=== PATIENT | male | born 1960 | race Hispanic/Latino ===

== ENCOUNTER → 2018-11-01 | Outpatient (CLI) | payer BC | END | disposition home or self-care (01) | LOC: RAH 10:05 | PROVIDERS: ATTEND Family Medicine | DX: M17.11 Unilateral primary osteoarthritis, right knee (principal); M25.762 Osteophyte, left knee; M25.761 Osteophyte, right knee | CPT/HCPCS: 73562 ==

== ENCOUNTER → 2022-06-26 | Outpatient (CLI) | payer BC, OTHER | END | disposition home or self-care (01) | LOC: RAH 11:02 | PROVIDERS: ATTEND Physician Assistant | DX: M17.0 Bilateral primary osteoarthritis of knee (principal); M25.762 Osteophyte, left knee; M25.761 Osteophyte, right knee; M25.562 Pain in left knee; G56.03 Carpal tunnel syndrome, bilateral upper limbs ==

== ENCOUNTER 2024-02-03 05:41 | Observation (INO) | payer BC ==
[2024-02-01 10:26] LABS: BASOPHILS # (AUTO) 0.07 K/uL (0.00-0.20); BASOPHILS % (AUTO) 0.9 % (0.0-5.0); EOSINOPHILS # (AUTO) 0.41 K/uL (0.00-0.70); EOSINOPHILS % (AUTO) 5.4 % (0.0-8.0); HEMATOCRIT 42.6 % (42-54); IMMATURE GRANULOCYTE ABSOLUTE 0.04 K/uL (0-1); LYMPHOCYTES # (AUTO) 1.6 K/uL (1.0-4.8); MEAN CORPUSCULAR HEMOGLOBIN 27.7 pg (27.0-33.0); MEAN CORPUSCULAR HGB CONC 32.4 g/dL (32.0-36.0); MEAN CORPUSCULAR VOLUME 85.4 fL (79-99); MONOCYTES # (AUTO) 0.6 K/uL (0.1-1.0); MONOCYTES % (AUTO) 7.2 % (3.0-13.0); PLATELET COUNT (AUTO) 266 K/uL (130-400); RED BLOOD CELL COUNT(AUTO) 4.99 MIL/uL (4.50-6.20); WHITE BLOOD COUNT (AUTO) 7.6 K/uL (4.8-10.8)
[2024-02-01 10:39] LABS: APPEARANCE,URINE CLEAR (CLEAR); BILIRUBIN,URINE NEGATIVE (NEGATIVE); COLOR,URINE LIGHT-YELLOW (YELLOW); GLUCOSE, URINE (UA) 150 mg/dL (NEGATIVE); KETONES,URINE NEGATIVE (NEGATIVE); LEUKOCYTE ESTERASE ,URINE 25 Leu/uL (NEGATIVE); NITRATE,URINE NEGATIVE (NEGATIVE); OCCULT BLOOD,URINE NEGATIVE (NEGATIVE); PH,URINE 6.5 (5.0-8.0); PROTEIN,URINE NEGATIVE (NEGATIVE); UROBILINOGEN,URINE 0.2 mg/dL (0.2-1.0)
[2024-02-01 10:46] VITALS: BP 164/83; PULSE 64; RESP 18; TEMP 97.4
[2024-02-01 10:49] LABS: ADD UA MICROSCOPIC YES
[2024-02-01 10:53] LABS: MUCUS,URINE RARE LPF (None Seen); RBC,URINE 0-1 /HPF (0-1); SQUAMOUS EPITHELIAL CELL,UR RARE /HPF (0-2)
[2024-02-03] VITALS (31 sets, daily range): BP systolic 126–168; BP diastolic 65–113; PULSE 56–86; RESP 17–23; TEMP 97.5–99.4; O2SAT 96–98
[~2024-02-03] VITALS: Ht 177.8 cm; Wt 106.7 kg
[~2024-02-03 05:41] MED LIST: ATOR10TA69 PO; IBUP-2077 PO; LISI1TAB49 PO; METF-446 PO
[2024-02-03] MEDS: 0.9%NACL 1000ML 1,000 ML IV ONE (06:46)
[2024-02-03] MEDS: ceFAZolin SODIUM 2 GM VIAL ONE (06:47)
[2024-02-03] MEDS ORDERED: proPOFol 10 MG/ML 20ML VIAL IV ONE (07:01)
[2024-02-03] MEDS ORDERED: MIDAZOLAM HCL 1 MG/ML 2ML VIAL ONE (07:01)
[2024-02-03] MEDS ORDERED: FENTanyl CITRate PF 50 MCG/1 ML 2ML VIAL ONE ×2 (07:02→09:57)
[2024-02-03] MEDS ORDERED: ondanSETRON 4MG INJ ONE (07:02)
[2024-02-03] MEDS ORDERED: rocuRONium bROMide 10MG/1ML 5ML VL ONE ×2 (07:02→07:46)
[2024-02-03] MEDS ORDERED: ROPivacaine 0.5% 5MG/ML 30ML ONE (07:12)
[2024-02-03] MEDS ORDERED: LIDOCAINE 2%-EPI 1:200,000 20 ML VIAL IJ ONE (07:13)
[2024-02-03] MEDS ORDERED: dexaMETHasone SOD PHOSPHATE 10MG/ML 1ML VIAL ONE (07:24)
[2024-02-03] MEDS: TRANEXAMIC ACID 1000MG/10ML ONE (07:37)
[2024-02-03] MEDS ORDERED: phenylEPHRINE HCL 10 MG/ML 1ML VIAL IV ONE (08:16)
[2024-02-03] MEDS: ketOROlac 30MG VIAL (30MG/ML) ONE (08:40)
[2024-02-03] MEDS: ROPivacaine 0.5% 5MG/ML 30ML ONE (08:40)
[2024-02-03] MEDS: TRANEXAMIC ACID 1000MG/10ML IV ONE ×2 (09:35)
[2024-02-03] MEDS ORDERED: NEOSTIGMINE METHYLSULFATE 1MG/ML IV ONE (09:45)
[2024-02-03] MEDS ORDERED: GLYCOPYRROLATE 0.2 MG/ML 5 ML VIAL ONE (09:45)
[2024-02-03] MEDS ORDERED: PoTASSium chloRIDE 20MEQ ER 20 MEQ ERTAB PO PRN (10:00)
[2024-02-03] MEDS ORDERED: FERROUS FUMARATE 324 MG TABLET PO PRN (10:00)
[2024-02-03] MEDS ORDERED: PoTASSium chloRIDE 20MEQ/100ML 100 ML IV PRN (10:00)
[2024-02-03] MEDS ORDERED: ondanSETRON 4MG INJ IVP PRN (10:00)
[2024-02-03] MEDS ORDERED: PoTASSium chl 10% ELIXIR 20MEQ 20 MEQ/15 ML UDCUP PO PRN (10:00)
[2024-02-03] MEDS: acetaMINOPHEN 100 ML ONE (10:24)
[2024-02-03] MEDS: MEPERIDINE-PF 25 MG/ML SYG ONE ×2 (10:24)
[2024-02-03] MEDS: FENTanyl CITRate PF 50 MCG/1 ML 2ML VIAL ONE (11:08)
[2024-02-03] MEDS: CYCLOBENZAPRINE HCL 10 MG TABLET PO PRN (12:07)
[2024-02-03] MEDS: ketOROlac 15MG/ML VIAL (15MG/ML) IV SCH (12:12)
[2024-02-03] MEDS: 0.9%NACL 1000ML 1,000 ML IV SCH (12:21)
[2024-02-03] MEDS: GABApentin 100 MG CAPSULE PO SCH (14:28)
[2024-02-03] MEDS: HYDROcodone/APAP 5/325 1 TAB TABLET PO PRN (14:29)
[2024-02-03] MEDS: ceFAZolin SODIUM 2 GM VIAL IVP SCH (14:29)
[2024-02-03] MEDS: metFORmin HCL 500 MG TABLET PO SCH (18:00)
[2024-02-03] MEDS: traMADol HCL 50 MG TABLET PO PRN (18:13)
[2024-02-03] MEDS ORDERED: NON-FORMULARY MEDICATION 1 EACH (Lisinopril/Hydrochlorothiazide (Lisinopril-Hctz 10-12.5 m PO SCH (21:00)
[2024-02-03] MEDS: doCUSate SODIUM 100 MG CAP PO SCH (21:01)
[2024-02-03] MEDS: atorVAStatin 10 MG TABLET PO SCH (21:02)
[2024-02-03 21:59] LABS: CREATININE 1.2 mg/dL (0.5-1.3); POTASSIUM 4.1 mmol/L (3.5-5.1)
[2024-02-04] MEDS: ketOROlac 15MG/ML VIAL (15MG/ML) IV SCH (00:11)
[2024-02-04 03:56] VITALS: BP 130/66; PULSE 78; RESP 18; TEMP 99
[2024-02-04 04:31] LABS: HEMATOCRIT 32.1 % (42-54); MEAN CORPUSCULAR HEMOGLOBIN 27.9 pg (27.0-33.0); MEAN CORPUSCULAR HGB CONC 31.8 g/dL (32.0-36.0); MEAN CORPUSCULAR VOLUME 87.7 fL (79-99); RED BLOOD CELL COUNT(AUTO) 3.66 MIL/uL (4.50-6.20); RED CELL DISTRIBUTION WIDTH 13.5 % (11.0-15.5); WHITE BLOOD COUNT (AUTO) 11.8 K/uL (4.8-10.8)
[2024-02-04 04:48] LABS: CREATININE 1.2 mg/dL (0.5-1.3); POTASSIUM 3.7 mmol/L (3.5-5.1)
[2024-02-04 07:48] VITALS: BP 134/75; PULSE 78; RESP 20; TEMP 97.4
[2024-02-04 08:00] VITALS: O2SAT 98
[2024-02-04] MEDS: CALCIUM CARB 500MG PO PRN (08:50)
[2024-02-04] MEDS: ASPIRIN 325MG EC TAB PO SCH (08:50)
[2024-02-04] MEDS: polyETHYLene GLYCol 3350 17 GM POWD.PACK PO SCH (08:51)
[2024-02-04] MEDS: hydroCHLOROthiazide 25 MG TABLET PO SCH (08:51)
[2024-02-04] MEDS: LISINOPRIL 10 MG TABLET PO SCH (08:51)
[2024-02-04] MEDS: ketOROlac 15MG/ML VIAL (15MG/ML) IV PRN (10:25)
[2024-02-04 11:45] VITALS: BP 154/72; PULSE 65; RESP 20; TEMP 98.1
[2024-02-04 14:00] VITALS: BP 153/69; PULSE 74; RESP 20; TEMP 97.6
[2024-02-04] MEDS ORDERED: GABA100C PO (16:48)
[2024-02-04] MEDS ORDERED: HYDR-4060 PO (16:48)
[2024-02-04] MEDS ORDERED: DOCU-116 PO (16:48)
[2024-02-04] MEDS ORDERED: CYCL-309 PO (16:48)
[2024-02-04] MEDS ORDERED: ASPI-891 PO (16:48)
[2024-02-06] MEDS ORDERED: BisaCODYL 10 MG SUPP.RECT RC PRN (10:00)
== END 2024-02-04 18:55 | disposition home or self-care (01) ==
LOC: DAH 05:41 → DAHIP 05:42 → DAH 05:42 → 4BH 11:30
PROVIDERS: ADMIT Student in an Organized Health Care Education/Training Program; ATTEND Student in an Organized Health Care Education/Training Program
DX: M17.11 Unilateral primary osteoarthritis, right knee (principal); G89.18 Other acute postprocedural pain; D62 Acute posthemorrhagic anemia; I10 Essential (primary) hypertension; E11.9 Type 2 diabetes mellitus without complications; Z79.84 Long term (current) use of oral hypoglycemic drugs; Z79.899 Other long term (current) drug therapy
CPT/HCPCS: 85025; 84134; 81001; 36415 ×3; 87641; 64447; 27447; 96365; 96375; 80048 ×2; 82948 ×7; 86140; 73560; 97161; 97116 ×3; 97530 ×4; 96376; 96366; 85027; G0378 ×29; A4663; J7030 ×2; A4215 ×2; A4649 ×3; J3010 ×3; J3490 ×6; J1100; J2250; J2704; J2405; J1885 ×5; J2710; J2175 ×2; J2795 ×2; J2371; J0690 ×3; C1713 ×2; G0168; C1776 ×2; A4930; A6255; A5120; A4223 ×2; A4222; A4221; A4216